=== PATIENT | male | born 1975 | race African-American/Black ===

== ENCOUNTER 2019-12-11 16:55 | Emergency (ER) | payer BC, OTHER ==
[2019-12-13 12:09] LABS: SARS-CoV-2 MS2 Positive; SARS-CoV-2 N Gene Negative; SARS-CoV-2 S Gene Negative; SARS-CoV-2 by NAA Not Detected (NotDetected); SARS-CoV-2 orf1ab Negative
== END 2019-12-11 17:55 | disposition home or self-care (01) ==
LOC: NAV ERS 16:55
DX: J06.9 Acute upper respiratory infection, unspecified (principal); Z20.828 Contact with and (suspected) exposure to other viral communicable diseases
CPT/HCPCS: 87635; 99283; U0003